=== PATIENT | male | born 1970 | race Asian ===

== ENCOUNTER 2021-12-02 20:35 | Emergency (ER) | payer BC, SELFPAY ==
--- NOTE | ~2021-12-02 | XR_ITS ---
EXAM: XR finger 3rd LT min 2V DATE: 12/02/2021 21:05 HISTORY: chain saw lac . COMPARISON: None available. FINDINGS: Normal mineralization. No fracture or dislocation. No lytic or blastic lesion. Joint space s are maintained. No erosion or periosteal change. Soft tissues within normal limits. IMPRESSION: No acute osseous finding in the left third digit. Reviewed, dictated and finalized at location K.
[2021-12-02 20:54] VITALS: BP 148/89; PULSE 82; RESP 16; TEMP 36.4; O2SAT 100
--- NOTE | 2021-12-02 21:45 | ED.WOUNDLAC ---
HPI - Wound/Laceration General Chief Complaint: Wound/Laceration Stated Complaint: right 3rd finger lac Time Seen by Provider: 12/02/21 21:07 Source: patient Mode of arrival: ambulatory Limitations: no limitations History of Present Illness HPI narrative: This is a 51-year-old male that presents to the emergency department for laceration to left third finger sustained just prior to arrival. Reports he was chopping down branches with a chainsaw and accidentally cut his finger. He is not up-to-date on tetanus. Denies decreased range of motion or numbness. Related Data Allergies Allergy/AdvReac Type Severity Reaction Status Date / Time NKDA Allergy Mild Unknown Uncoded 12/02/21 20:35 Review of Systems Review of Systems: CONSTITUTIONAL: Denies fever SKIN: Reports laceration NEUROLOGIC: Denies numbness All systems reviewed & are unremarkable except as noted in HPI and below PMFSH Past Medical History Medical History (Updated 12/02/21 @ 22:46 by Mariam Ta PA-C) No active medical problems Social History Social History (Updated 12/02/21 @ 21:48 by Mariam Ta PA-C) Smoking status: Never smoker Exam Narrative: GENERAL: Well-appearing, well-nourished, and in no acute distress. HEAD: Normocephalic, atraumatic. EYES: EOMI. EXTREMITIES: Normal range of motion. No edema or obvious deformity. Normal sensation. Left third finger with two linear lacerations into subcutaneous tissue to the dorsal surface distal phalanx. Normal radial pulse SKIN: Warm, dry, no rash. NEURO: No focal deficits. Alert and oriented x3. PSYCH: Normal mood and affect Course Vital Signs Vital signs: Vital Signs Temperature 97.6 F 12/02/21 20:54 Pulse Rate 82 12/02/21 20:54 Respiratory Rate 16 12/02/21 20:54 Blood Pressure 148/89 H 12/02/21 20:54 Pulse Oximetry 100 12/02/21 20:54 Oxygen Delivery Room Air 12/02/21 20:54 Temperature 97.6 F 12/02/21 20:54 Pulse Rate 82 12/02/21 20:54 Respiratory Rate 16 12/02/21 20:54 Blood Pressure 148/89 H 12/02/21 20:54 Pulse Oximetry 100 12/02/21 20:54 Oxygen Delivery Room Air 12/02/21 20:54 Procedures Laceration Laceration 1: Date: 12/02/21 Time: 22:43 Site: hand Side (If applicable): left Size (cm): 1 Description: linear Depth: simple, single layer Local Anesthetic: lidocaine 1% Amount of anesthesia used (mL): 3 Pre-repair: irrigated ====== Skin Level ====== Skin layer closed with: nylon Size (cm): 4-0 Number of sutures: 1 Technique: simple, interrupted ====== Subcutaneous Layer ====== ====== Muscle Layer ====== ====== Tendon Layer ====== Laceration 2: Date: 12/02/21 Time: 22:44 Site: hand Side (If applicable): left Size (cm): 1.5 Description: linear Depth: simple, single layer Local Anesthetic: lidocaine 1% Amount of anesthesia used (mL): 3 Pre-repair: irrigated ====== Skin Level ====== Skin layer closed with: nylon Size (cm): 4-0 Number of sutures: 2 Technique: simple, interrupted ====== Subcutaneous Layer ====== ====== Muscle Layer ====== ====== Tendon Layer ====== MDM - Wound/Laceration MDM Narrative Medical decision making narrative: Patient presents to the emergency department for left hand laceration sustained just prior to arrival. Patient is neurovascularly intact. Left third finger x-ray without acute osseous abnormalities. Patient's wound was irrigated and closed with sutures. Patient was updated on tetanus. He is to follow-up with primary care doctor. He was given warnings to return to the ER Imaging Data Radiologist's impression: ITS Impressions Finger X-Ray 12/02/21 21:15 IMPRESSION: No acute osseous finding in the left third digit. Critical Care Time Critical Care
[2021-12-02] MEDS: LIDOCAINE HCL 1% LOCAL INJ 20 ML VIAL INFILTRATE (21:57)
[2021-12-02] MEDS: TETANUS,DIPHTHERIA,AC PERTUSSIS ADULT (0.5 ML) BOOSTRIX IM (22:02)
== END 2021-12-02 22:50 | disposition home or self-care (01) ==
PROVIDERS: Emergency Provider Emergency Medicine
DX: S61.213A Laceration without foreign body of left middle finger without damage to nail, initial encounter (principal); Z23 Encounter for immunization; W29.3XXA Contact with powered garden and outdoor hand tools and machinery, initial encounter
CPT/HCPCS: 12001; 73140; 90471; 90715; 99283